=== PATIENT | male | born 1965 | race African-American/Black ===

== ENCOUNTER 2017-09-11 10:41 | Emergency (ER) | payer OTHER ==
[2017-09-11 12:58] LABS: PLATELET COUNT 138 x10^3mcL (130-400); RED CELL DISTRIBUTION WIDTH 14.5 % (11.5-14.5)
[2017-09-11 13:08] LABS: CALCIUM 9.7 mg/dL (8.5-10.1); CARBON DIOXIDE 27.4 mmol/L (21-32); CREATININE SERUM 1.7 mg/dL (0.7-1.3); POTASSIUM SERUM 4.1 mmol/L (3.5-5.1)
[2017-09-11 13:47] LABS: C REACTIVE PROTEIN 27.2 mg/dL (<=0.9)
[2017-09-11 13:56] LABS: BAND NEUTROPHIL 3 % (0-10); MONOCYTE 2 % (0-7); SEGMENTED NEUTROPHILS 90 % (37-75); rbc morphology (normal/abnorm) NORMAL (NORMAL)
[2017-09-11 16:10] VITALS: BP 115/80
== END 2017-09-11 16:10 | disposition short-term general hospital (02) ==
LOC: ED 10:41
PROVIDERS: Emergency Medicine
DX: J05.10 Acute epiglottitis without obstruction (principal); J36 Peritonsillar abscess; E66.9 Obesity, unspecified; G89.29 Other chronic pain; M54.9 Dorsalgia, unspecified
CPT/HCPCS: 86308; J0696; J1100; J1885; Q9967